=== PATIENT | male | born 1965 | race Caucasian/White ===

== ENCOUNTER 2016-11-20 00:14 | Emergency (ER) | payer OTHER ==
[2016-11-20 00:29] VITALS: BP 160/96
--- NOTE | 2016-11-20 01:07 | EDM.PDOC ---
ED HPI GENERAL MEDICAL PROBLEM - General Chief Complaint: Chest Pain Stated Complaint: CRAMPING IN HAND N FOOT DRY MOUTH Time Seen by Provider: 11/20/16 00:56 - History of Present Illness INITIAL COMMENTS - FREE TEXT/NARRATIVE: 51-year-old male presents emergency room some chest discomfort. This started around 10:30 this evening after the patient had some crampiness in his hands and feet. 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 The patient also has been under a lot of stress and has increased anxiety. His past medical history is unremarkable other than ventral hernia repairs and an inguinal hernia repair. He has no history of heart problems he quit smoking many years ago he occasionally drinks alcohol he is not treated for high blood pressure hyperlipidemia. His family history is unremarkable. Left Chest Pain Score (Numeric/FACES): 5 - Related Data Allergies Allergy/AdvReac Type Severity Reaction Status Date / Time No Known Allergies Allergy Verified 11/20/16 00:30 Home Meds: Home Meds . [No Known Home Meds] 08/04/14 [History] Social & Family History - Tobacco Use Smoking Status *Q: Never Smoker Second Hand Smoke Exposure: No - Caffeine Use Caffeine Use: Reports: Coffee - Recreational Drug Use Recreational Drug Use: No ED ROS GENERAL - Review of Systems Review Of Systems: See Below Constitutional: Reports: No Symptoms HEENT: Reports: No Symptoms, Vertigo Cardiovascular: Reports: Chest Pain ED EXAM, GENERAL - Physical Exam Exam: See Below Exam Limited By: No Limitations General Appearance: Alert, No Apparent Distress Head: Atraumatic, Normocephalic Neck: Normal Inspection, Supple, Non-Tender, Full Range of Motion Respiratory/Chest: No Respiratory Distress, Lungs Clear, Normal Breath Sounds Cardiovascular: Regular Rate, Rhythm, No Edema, No Murmur GI/Abdominal: Normal Bowel Sounds, Soft, Non-Tender, Other (prior incisions noted). No: Distended, Guarding, Rigid, Rebound, Tender Back Exam: Normal Inspection. No: CVA Tenderness (L), CVA Tenderness (R) Extremities: Normal Inspection, No Pedal Edema Neurological: Alert, Oriented, Normal Cognition Course - Vital Signs Last Recorded V/S: Last Vital Signs Temp 36.1 C 11/20/16 00:26 Pulse 68 11/20/16 00:26 Resp 14 11/20/16 00:26 BP 160/96 H 11/20/16 00:26 Pulse Ox 99 11/20/16 00:26 - Orders/Labs/Meds Orders: Active Orders 24 hr Category Date Time Status EKG Documentation Completion [RC] STAT Care 11/20/16 00:42 Active Chest 1V Frontal [CR] Stat Exams 11/20/16 00:39 Taken Labs: Laboratory Tests 11/20/16 11/20/16 11/20/16 Range/Units 00:25 00:25 00:25 WBC 9.67 H (4.23-9.07) K/mm3 RBC 5.01 (4.63-6.08) M/mm3 Hgb 15.6 (13.7-17.5) gm/L Hct 45.7 (40.1-51.0) % MCV 91.2 (79.0-92.2) fl MCH 31.1 (25.7-32.2) pg MCHC 34.1 (32.2-35.5) g/dl RDW Std Deviation 43.8 (35.1-43.9) fL Plt Count 278 (163-337) K/mm3 MPV 9.6 (9.4-12.3) fl Neut % (Auto) 62.5 (34.0-67.9) % Lymph % (Auto) 25.9 (21.8-53.1) % [place] % (Auto) 8.9 (5.3-12.2) % Eos % (Auto) 2.1 (0.8-7.0) Baso % (Auto) 0.3 (0.1-1.2) % Neut # (Auto) 6.05 H (1.78-5.38) K/mm3 Lymph # (Auto) 2.50 (1.32-3.57) K/mm3 [place] # (Auto) 0.86 H (0.30-0.82) K/mm3 Eos # (Auto) 0.20 (0.04-0.54) K/mm3 Baso # (Auto) 0.03 (0.01-0.08) K/mm3 Sodium 139 (136-145) mEq/L Potassium 3.5 (3.5-5.1) mEq/L Chloride 103 (98-107) mEq/L Carbon Dioxide 26 (21-32) mEq/L Anion Gap 13.5 (5-15) BUN 16 (7-18) mg/dL Creatinine 1.8 H (0.7-1.3) mg/dL Est Cr Clr Drug Dosing 45.90 mL/min Estimated GFR (MDRD) 40 (>60) mL/min BUN/Creatinine Ratio 8.9 L (14-18) Glucose 85 (74-106) mg/dL Calcium 9.3 (8.5-10.1) mg/dL Magnesium 2.0 (1.8-2.4) mg/dl Total Bilirubin 0.3 (0.2-1.0) mg/dL AST 26 (15-37) U/L ALT 29 (16-63) U/L Alkaline Phosphatase 74 (46-116) U/L Troponin I < 0.017 (0.00-0.056) ng/mL Total Protein 7.5 (6.4-8.2) g/dl Albumin 4.0 (3.4-5.0) g/dl Globulin 3.5 gm/dL Albumin/Globulin Ratio 1.1 (1-2) Meds: Medications Discontinued Medications Generic Name Dose Route Start Last Admin Trade Name Freq PRN Reason Stop Dose Admin Lorazepam 0.5 mg 11/20/16 01:15 11/20/16 01:34 Ativan IVPUSH 11/20/16 01:16 0.5 mg ONETIME ONE Administration - Re-Assessments/Exams Free Text/Narrative Re-Assessment/Exam: 11/20/16 02:22 Patient is doing much better he received a half milligram of Ativan he was able to drink a full bottle of Powerade he is not having any cramping no chest pain he would like to go home and get some rest. Chest x-ray is unremarkable EKG is entirely normal his troponin is negative of concern is his creatinine is 1.8 I' ve explained this to the patient and he agrees to follow-up in the clinic to have this rechecked. Departure - Departure Time of Disposition: 02:23 Disposition: Home, Self-Care 01 Clinical Impression: Chest pain, atypical, Anxiety - Discharge Information Forms: ED Department Discharge Additional Instructions: Return to the emergency room with any questions problems or worsening symptoms. Follow up in the Hospital clinic in 1 week for recheck have your creatinine rechecked and discuss if a heart stress test would be of benefit. Drink plenty of fluids between now and then especially at work and when in a hot environment. You been given a medication that can cause some sedation be certain not to drive or return to work until this is cleared your system. This can take up to 12 hours from the time it was given to you. - My Orders Last 24 Hours: My Active Orders 11/20/16 00:39 Chest 1V Frontal [CR] Stat 11/20/16 00:42 EKG Documentation Completion [RC] STAT - Assessment/Plan Last 24 Hours: My Active Orders 11/20/16 00:39 Chest 1V Frontal [CR] Stat 11/20/16 00:42 EKG Documentation Completion [RC] STAT
[2016-11-20] MEDS ORDERED: LORazepam 2 MG/ML MDV IVPUSH ONE (01:15)
--- NOTE | 2016-11-20 07:11 | CR ---
Chest: Portable view of the chest was obtained. Comparison: No previous study. Heart size and mediastinum are normal. Vague increased lung markings are seen within the right mid chest. Lungs otherwise are clear. Bony structures are grossly intact. Impression: 1. Slight increased density within the right mid lung. This could represent minimal area of pneumonia if patient has infectious symptoms. Findings otherwise due to slight atelectasis. 2. Portable chest x-ray is otherwise unremarkable. Diagnostic code #3
== END 2016-11-20 02:33 | disposition home or self-care (01) ==
LOC: JD.ED 00:14
DX: R07.89 Other chest pain (principal); F41.9 Anxiety disorder, unspecified
CPT/HCPCS: 36415; 71010; 80053; 83735; 84484; 85025; 93005; 96374; 99285; J2060; 99284

== ENCOUNTER 2020-06-14 15:27 | Emergency (ER) | payer BC, OTHER ==
[2020-06-14 15:40] VITALS: BP 143/83; PULSE 94
[2020-06-14] MEDS ORDERED: Lidocaine 1% 10 ML MDV INJECT ONE (16:40)
--- NOTE | 2020-06-14 16:55 | CR ---
Right knee: 4 views of the right knee were obtained. Comparison: No previous study. Joint effusion is seen. Spurring is noted off the patella. Severe joint space narrowing is seen within the medial joint compartment. Lateral joint space shows mild narrowing. Osteophytes are seen off the medial and lateral joint spaces. No acute fracture or other abnormality is appreciated. Impression: 1. Degenerative change and joint effusion. 2. Nothing acute is appreciated on right knee exam. Diagnostic code #3
--- NOTE | 2020-06-14 17:03 | EDM.PDOC ---
ED HPI GENERAL MEDICAL PROBLEM - General Chief Complaint: Lower Extremity Injury/Pain Stated Complaint: R KNEE PAIN Time Seen by Provider: 06/14/20 15:47 Source of Information: Reports: Patient History Limitations: Reports: No Limitations - History of Present Illness INITIAL COMMENTS - FREE TEXT/NARRATIVE: The patient presents with right knee pain and swelling. 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 He went to sleep and this morning he woke up and he had swelling and pain. He has no erythema, fever or chills. He says a year ago he hurt his knee. He slipped on some oil at work and twisted his knee. Since then he has had episodes where his knee locks. He has no fever, chills, cough, congestion, runny nose, chest pain, shortness of br eath and abdominal pain. Onset: Gradual Duration: Hour(s): Location: Reports: Lower Extremity, Right (knee) Quality: Reports: Sharp Severity: Moderate Improves with: Reports: Immobilization Worsens with: Reports: Movement Associated Symptoms: Reports: No Other Symptoms Right Knee Pain Score (Numeric/FACES): 10 - Related Data Allergies Allergy/AdvReac Type Severity Reaction Status Date / Time No Known Allergies Allergy Verified 06/14/20 15:40 Home Meds: Home Meds Hydrocodone/Acetaminophen [Hydrocodone-Acetamin 5-325 mg] 1 - 2 each PO Q6HR PRN #20 tablet 06/14/20 [Rx] Past Medical History - Past Health History Medical/Surgical History: Denies Medical/Surgical History - Past Surgical History GI Surgical History: Reports: Hernia Repair/Other Other GI Surgeries/Procedures: x3 Social & Family History - Family History Family Medical History: No Pertinent Family History - Tobacco Use Tobacco Use Status *Q: Former Tobacco User Used Tobacco, but Quit: Yes Month/Year Tobacco Last Used: 1999 - Caffeine Use Caffeine Use: Reports: Coffee - Recreational Drug Use Recreational Drug Use: No Review of Systems - Review of Systems Review Of Systems: See Below Constitutional: Reports: No Symptoms Eyes: Reports: No Symptoms Ears: Reports: No Symptoms Nose: Reports: No Symptoms Mouth/Throat: Reports: No Symptoms Respiratory: Reports: No Symptoms Cardiovascular: Reports: No Symptoms GI/Abdominal: Reports: No Symptoms Genitourinary: Reports: No Symptoms Musculoskeletal: Reports: Other (Right knee swelling and pain) ED EXAM, GENERAL - Physical Exam Exam: See Below Exam Limited By: No Limitations General Appearance: Alert, No Apparent Distress Ears: Normal External Exam Nose: Normal Inspection Head: Atraumatic, Normocephalic Neck: Normal Inspection Respiratory/Chest: No Respiratory Distress Extremities: Other (Moderate edema to the right knee with moderate pain upon palpation. The patient can lift his leg off of the bed. He has good sensation and pulses distally.) ED JOINT ASPIRATION PROCEDURE - Joint Apsiration/Arthrocentesis Site: Right knee Skin prep: Other (chlorprep) Local anesthesia: Lidocaine: 1% Plain Local Anesthetic Volume: 2cc Aspiration needle size: 18g Aspirate appearance: serous Aspirate amount in cc's: 45 Complications: No Course - Vital Signs Last Recorded V/S: Last Vital Signs Temp 99.8 F 06/14/20 15:34 Pulse 94 06/14/20 15:34 Resp 16 06/14/20 15:34 BP 143/83 H 06/14/20 15:34 Pulse Ox 96 06/14/20 15:34 - Orders/Labs/Meds Orders: Active Orders 24 hr Category Date Time Status CBC WITH AUTO DIFF [HEME] Stat Lab 06/14/20 16:56 Results CULTURE BODY FLUID + SMEAR [RM] Stat Lab 06/14/20 17:20 Received ESR [SEDIMENTATION RATE AUTO] [HEME] Stat Lab 06/14/20 16:56 Received SYNOVIAL CRYSTALS Stat Lab 06/14/20 17:20 Received SYNOVIAL FLUID ANALYSIS [BF] Stat Lab 06/14/20 17:20 Received Durable Medical Equipment for Discharge [DME for Ot 06/14/20 17:30 Ordered Discharge] [COMM] Stat Labs: Laboratory Tests 06/14/20 06/14/20 Range/Units 16:56 16:56 WBC 10.00 H (4.23-9.07) K/mm3 RBC 5.19 (4.63-6.08) M/mm3 Hgb 15.9 (13.7-17.5) gm/dl Hct 47.5 (40.1-51.0) % MCV 91.5 (79.0-92.2) fl MCH 30.6 (25.7-32.2) pg MCHC 33.5 (32.2-35.5) g/dl RDW Std Deviation 45.0 H (35.1-43.9) fL Plt Count 265 (163-337) K/mm3 MPV 8.8 L (9.4-12.3) fl Neut % (Auto) 65.9 (34.0-67.9) % Lymph % (Auto) 23.1 (21.8-53.1) % [place] % (Auto) 8.4 (5.3-12.2) % Eos % (Auto) 2.0 (0.8-7.0) Baso % (Auto) 0.3 (0.1-1.2) % Neut # (Auto) 6.59 H (1.78-5.38) K/mm3 Lymph # (Auto) 2.31 (1.32-3.57) K/mm3 [place] # (Auto) 0.84 H (0.30-0.82) K/mm3 Eos # (Auto) 0.20 (0.04-0.54) K/mm3 Baso # (Auto) 0.03 (0.01-0.08) K/mm3 C-Reactive Protein 2.4 H* (<1.0) mg/dL Meds: Medications Discontinued Medications Generic Name Dose Route Start Last Admin Trade Name Freq PRN Reason Stop Dose Admin Lidocaine HCl 10 ml 06/14/20 16:40 06/14/20 17:10 Xylocaine 1% INJECT 06/14/20 16:41 10 ml ONETIME ONE Administration - Re-Assessments/Exams Free Text/Narrative Re-Assessment/Exam: 06/14/20 17:30 I ordered an x-ray of his knee and it showed bone and bone arthritis. I ordered some labs and I aspirated his right knee. I obtained consent and anaesthetised the area with lidocaine and took off about 45mls of fluid. I will check the fluids for crystals, cell counts and culture. The patient has an appointment with [facility] [place] on Friday. 06/14/20 17:43 I will call him with the results. Departure - Departure Time of Disposition: 17:45 Disposition: Home, Self-Care 01 Condition: Good Clinical Impression: Effusion, right knee, Patellar tendinitis of right knee - Discharge Information *PRESCRIPTION DRUG MONITORING PROGRAM REVIEWED*: Not Applicable *COPY OF PRESCRIPTION DRUG MONITORING REPORT IN PATIENT PATRICIA: Not Applicable Prescriptions: Hydrocodone/Acetaminophen [Hydrocodone-Acetamin 5-325 mg] 1 - 2 each PO Q6HR PRN #20 tablet PRN Reason: Pain Referrals: PCP,None [Primary Care Provider] - Forms: ED Department Discharge, ED Return to Work/School Form Additional Instructions: Wear the knee immobilizer for a few days for comfort. Use the crutches as needed. Take motrin or aleve for pain. If that does not help, try the hydrocodone. Ice your knee for 15 minutes 3 times per day for 2 days. Follow up with your doctor on Friday. Please return if you are worse. Sepsis Event Note (ED) - Evaluation Sepsis Screening Result: No Definite Risk - Focused Exam Vital Signs: Vital Signs Temp Pulse Resp BP Pulse Ox 06/14/20 15:34 99.8 F 94 16 143/83 H 96 - My Orders Last 24 Hours: My Active Orders 06/14/20 16:56 CBC WITH AUTO DIFF [HEME] Stat ESR [SEDIMENTATION RATE AUTO] [HEME] Stat 06/14/20 17:20 CULTURE BODY FLUID + SMEAR [RM] Stat SYNOVIAL CRYSTALS Stat SYNOVIAL FLUID ANALYSIS [BF] Stat 06/14/20 17:30 Durable Medical Equipment for Discharge [DME for Discharge] [COMM] Stat - Assessment/Plan Last 24 Hours: My Active Orders 06/14/20 16:56 CBC WITH AUTO DIFF [HEME] Stat ESR [SEDIMENTATION RATE AUTO] [HEME] Stat 06/14/20 17:20 CULTURE BODY FLUID + SMEAR [RM] Stat SYNOVIAL CRYSTALS Stat SYNOVIAL FLUID ANALYSIS [BF] Stat 06/14/20 17:30 Durable Medical Equipment for Discharge [DME for Discharge] [COMM] Stat
== END 2020-06-14 18:00 | disposition home or self-care (01) ==
LOC: JD.ED 15:27
DX: M76.51 Patellar tendinitis, right knee (principal); M25.461 Effusion, right knee; Z87.891 Personal history of nicotine dependence
CPT/HCPCS: 20610; 36415; 73564-26-RT; 73564-RT; 85025; 85652; 86140; 87070; 87205; 89060; 99283; 99283-25

== ENCOUNTER 2021-01-03 08:10 | Emergency (ER) | payer BC, OTHER ==
[2021-01-03 08:45] VITALS: BP 128/91; PULSE 65
[2021-01-03] MEDS ORDERED: Diphtheria,Pertussis(Acell),Tetanus Vaccine 0.5 ML Syringe IM ONE (08:50)
[2021-01-03] MEDS ORDERED: Lidocaine 1% 10 ML MDV INJECT ONE (08:50)
--- NOTE | 2021-01-03 09:24 | CR ---
Right second finger: 4 views centered to the right second finger were obtained. Comparison: No prior study. Soft tissue swelling is seen. Joint spaces are preserved. No fracture, dislocation or other bony abnormality is seen. Impression: 1. Soft tissue swelling. 2. No acute bony abnormality is seen. Diagnostic code #2
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
== END 2021-01-03 10:15 | disposition home or self-care (01) ==
LOC: JD.ED 08:10
DX: S61.210A Laceration without foreign body of right index finger without damage to nail, initial encounter (principal); Z87.891 Personal history of nicotine dependence; Z23 Encounter for immunization; W22.09XA Striking against other stationary object, initial encounter
CPT/HCPCS: 12001; 73140-26-F6; 73140-F6; 90471; 90715; 99282; 99283-25

== ENCOUNTER 2021-07-02 11:00 | Day surgery (SDC) | payer BC ==
[~2021-07-02 11:00] MED LIST: Acetaminophen 325 MG Tab PO SCH; Lactated Ringers 1,000 ML IV SCH; Lidocaine 1%/Sod Bicarbonate in NS 8.4% 1 ML Syringe IDERM PRN; Pregabalin 25 MG Cap PO SCH; Sodium Chloride 0.9% 10 ML Syringe FLUSH PRN; Sodium Chloride 0.9% 10 ML Syringe FLUSH SCH; oxyCODONE ER 10 MG TAB.ER PO SCH
[2021-07-02] MEDS ORDERED: Lidocaine 1% 4 ML ONE (12:41)
[2021-07-02] MEDS ORDERED: fentaNYL 100 MCG/2 ML SDV ONE (12:41)
[2021-07-02] MEDS ORDERED: Midazolam 1 MG/ML 2 ML SDV ONE (12:41)
[2021-07-02] MEDS ORDERED: Propofol 200 MG/20 ML SDV ONE ×2 (12:41→14:01)
[2021-07-02] MEDS ORDERED: ceFAZolin 1 GM Vial ONE (13:18)
[2021-07-02] MEDS ORDERED: fentaNYL 100 MCG/2 ML SDV IVPUSH PRN (13:47)
[2021-07-02] MEDS ORDERED: Ondansetron 4 MG/2 ML SDV IVPUSH PRN (13:47)
[2021-07-02] MEDS: Morphine 8 MG, EPINEPHrine 0.3 MG, Cefuroxime 750 MG, Ketorolac 30 MG, Sodium Chloride ... PRN ×10 (14:05→14:24)
[2021-07-02] MEDS ORDERED: Lactated Ringers 1,000 ML ONE (14:16)
[2021-07-02] MEDS ORDERED: Ondansetron 4 MG/2 ML SDV ONE (14:17)
[2021-07-02] MEDS ORDERED: Ketorolac 30 MG/ML SDV ONE (14:17)
[2021-07-02] MEDS: Vancomycin 1 GM SDV ONE ×2 (14:25→14:30)
[2021-07-02] MEDS ORDERED: Ropivacaine 0.5% 5 MG/ML 30 ML SDV ONE (14:54)
[2021-07-02] MEDS ORDERED: EPINEPHrine 1 MG/ML SDV ONE (14:54)
[2021-07-02 16:42] VITALS: BP 131/78; PULSE 78
[2021-07-02] MEDS ORDERED: oxyCODONE 5 MG Tab PO ONE (17:13)
== END 2021-07-02 17:20 | disposition home or self-care (01) ==
LOC: JD.SDS 11:00
PROVIDERS: ATTEND Orthopaedic Surgery
DX: M17.11 Unilateral primary osteoarthritis, right knee (principal); E78.5 Hyperlipidemia, unspecified; I10 Essential (primary) hypertension; Z87.891 Personal history of nicotine dependence; Z98.890 Other specified postprocedural states
CPT/HCPCS: 27447; 73560; 97110; 97116; 97161; A9270; C1713; C1776; J0171; J0690; J0697; J1885; J2250; J2270; J2405; J2704; J2795; J3010; J3370; J7120; 01402; 64447; 76942

== ENCOUNTER 2023-05-21 20:39 | Emergency (ER) | payer BC, OTHER ==
[2023-05-21 20:53] VITALS: BP 150/81; PULSE 84
== END 2023-05-21 22:20 | disposition home or self-care (01) ==
LOC: JD.ED 20:39
DX: N50.812 Left testicular pain (principal)
CPT/HCPCS: 76870; 76870-26; 93975; 99283; 99284